=== PATIENT | female | born 1985 | race Caucasian/White ===

== ENCOUNTER → 2016-10-25 | Outpatient (CLI) | payer OTHER ==
[2016-10-25 09:00] LABS: EKG EKG PERFORMED
--- NOTE | 2016-10-25 09:40 | XR ---
EXAMINATION TYPE: XR chest 2V DATE OF EXAM: 10/25/2016 9:26 AM COMPARISON: NONE TECHNIQUE: PA and lateral views submitted. HISTORY: Preop FINDINGS: The lungs are clear and there is no pneumothorax, pleural effusion, or focal pneumonia. Hypertrophi c change of the spine noted. IMPRESSION: 1. No acute process.
[2016-10-25 09:41] LABS: Basophils % (A) 1 %; CH 30.7; CHCM 33.5; Eosinophils # (A) 0.1 k/uL (0-0.7); Eosinophils % (A) 1 %; HCT 43.9 % (34.0-46.0); HDW 2.49; HGB 14.4 gm/dL (11.4-16.0); Luc # (Auto) 0.12; Luc % (Auto) 2; Lymphocytes # (A) 1.8 k/uL (1.0-4.8); Lymphocytes % (A) 30 %; MCH 30.3 pg (25.0-35.0); MCHC 32.9 g/dL (31.0-37.0); MCV 92.2 fL (80.0-100.0); Mean Platelet Volume 6.6; Monocytes # (A) 0.4 k/uL (0-1.0); Monocytes % (A) 7 %; Neutrophils # (A) 3.5 k/uL (1.3-7.7); Neutrophils % (A) 59 %; RBC 4.77 m/uL (3.80-5.40); WBC 5.9 k/uL (3.8-10.6)
[2016-10-25 09:45] LABS: Partial Thromboplastin Time 24.9 sec (22.0-30.0); Prothrombin Time 10.4 sec (9.0-12.0)
[2016-10-25 10:14] LABS: ALT 41 U/L (9-52); AST 26 U/L (14-36); Alkaline Phosphatase 81 U/L (38-126); Anion Gap 8 mmol/L; Bilirubin, Delta 0.2 mg/dL (0.0-0.2); Blood Urea Nitrogen 14 mg/dL (7-17); Calcium 9.6 mg/dL (8.4-10.2); Carbon Dioxide 26 mmol/L (22-30); Chloride 107 mmol/L (98-107); Cholesterol 174 mg/dL (<200); GGT 43 U/L (12-43); Glucose 94 mg/dL (74-99); HDL Cholesterol 46 mg/dL (40-60); LDH 397 U/L (313-618); Non-African American GFR(MDRD) >60 (>60 ml/min/1.73 sqM); Phosphorous 3.4 mg/dL (2.5-4.5); Potassium 4.8 mmol/L (3.5-5.1); Sodium 141 mmol/L (137-145); Total Bilirubin 0.5 mg/dL (0.2-1.3); Total Protein 6.8 g/dL (6.3-8.2); Triglycerides 76 mg/dL (<150)
[2016-10-25 10:53] LABS: Appearance,Urine Clear (Clear); Bilirubin,Urine Negative (Negative); Glucose,Urine (UA) Negative (Negative); Ketones,Urine Negative (Negative); Leukocyte Esterase,Urine Negative (Negative); Nitrite,Urine Negative (Negative); Protein,Urine Negative (Negative); Specific Gravity,Urine 1.015 (1.001-1.035); UA Billing (MACRO vs. MICRO) CHEM; Urobilinogen,Urine <2.0 mg/dL (<2.0)
[2016-10-25 11:11] LABS: Hepatitis B Surface Ag Index 0.05; Hepatitis B Surface Antibody Negative (Negative)
[2016-10-25 11:12] LABS: Hepatitis B Core IgM Index 0.02; Hepatitis C Virus IgG Ab Negative (Negative); Hepatitis C Virus IgG Index 0.01
[2016-10-25 17:16] LABS: Treponemal Ab Non-Reactive (Non-Reactive)
[2016-10-26 07:18] LABS: HIV-1/HIV-2 Ab Screen NONREAC (NON REAC)
[2016-10-26 13:45] LABS: Hepatits C Virus RNA, Quant <12 IU/mL (<12); LOG HCV IU/mL <1.08 (<1.08)
== END | disposition home or self-care (01) ==
LOC: MERGE 08:35 → LABWHC1 08:35
PROVIDERS: ATTEND Surgery
DX: Z52.4 Kidney donor (principal); Z13.6 Encounter for screening for cardiovascular disorders; R91.8 Other nonspecific abnormal finding of lung field
CPT/HCPCS: 36415; 71020; 80053; 80061; 81003; 81050; 82248; 82570; 82977; 83036; 83615; 84100; 84156; 85025; 85610; 85730; 86480; 86644; 86665; 86704; 86705; 86706; 86780; 86803; 87086; 87340; 87389; 87522; 93005

== ENCOUNTER → 2017-02-09 | Outpatient (CLI) | payer OTHER ==
[2017-02-09 10:58] LABS: Appearance,Urine Clear (Clear); Bilirubin,Urine Negative (Negative); Glucose,Urine (UA) Negative (Negative); Ketones,Urine Negative (Negative); Leukocyte Esterase,Urine Negative (Negative); Nitrite,Urine Negative (Negative); PH, Urine 5.5 (5.0-8.0); Protein,Urine Negative (Negative); UA Billing (MACRO vs. MICRO) CHEM; Urobilinogen,Urine <2.0 mg/dL (<2.0)
[2017-02-09 16:27] LABS: Urine Creatinine 193.3 mg/dL
== END | disposition home or self-care (01) ==
LOC: LABWHC1 09:31
PROVIDERS: ATTEND Surgery
DX: Z09 Encounter for follow-up examination after completed treatment for conditions other than malignant neoplasm (principal); Z52.4 Kidney donor
CPT/HCPCS: 36415; 81003; 82043; 82570; 84156; 87086